=== PATIENT | female | born 1980 | race Hispanic/Latino ===

== ENCOUNTER 2022-07-07 17:20 | Emergency (ER) | payer SELFPAY ==
[2022-07-07 17:40] VITALS: BP 135/73; PULSE 67; RESP 18; TEMP 36.7; O2SAT 100
[2022-07-07 17:47] LABS: Basophils Percent Auto 0.4 % (0.2-1.2); Eosinophils Absolute Auto 0.1 K/mm3 (0-0.3); Eosinophils Percent Auto 0.7 % (0-4.4); Hemoglobin 13.2 g/dL (12.0-15.0); Immature Granulocyte Absolute 0.02 K/mm3 (0.00-0.031); Immature Granulocyte Percent A 0.2 % (0-0.5); Lymphocytes Absolute Auto 4.15 K/mm3 (0.9-3.2); Lymphocytes Percent Auto 39.1 % (18.3-44.2); Mean Corpuscular HGB Conc 32.2 g/dl (32-36); Mean Corpuscular Hemoglobin 28.4 pg (26-34); Mean Corpuscular Volume 88.2 fl (80-100); Mean Platelet Volume 10.7 fl (7.4-10.4); Monocytes Absolute Auto 0.6 K/mm3 (0.1-0.6); Monocytes Percent Auto 5.7 % (2.6-8.5); Neutrophils Absolute Auto 5.7 K/mm3 (1.3-6.7); Neutrophils Percent Auto 53.9 % (45.5-73.1); Platelet Count Result 190 k/mm3 (150-375); Red Blood Count 4.65 M/mm3 (4.2-5.4); Red Cell Distribution Width 12.9 % (11.5-14.5); White Blood Count 10.6 K/mm3 (4.5-10.0)
[2022-07-07 17:58] LABS: Alanine Aminotransferase 25 U/L (6-35); Albumin Level 4.5 g/dL (3.5-5.1); Alkaline Phosphatase 78 U/L (38-126); Anion Gap 12 mmol/L (8-16); Aspartate Amino Transferase 25 U/L (14-36); Bilirubin,Total 0.4 mg/dL (0.2-1.3); Blood Urea Nitrogen 12 mg/dL (7-17); Calcium 8.7 mg/dL (8.4-10.2); Carbon Dioxide 22 mmol/L (22-30); Chloride 102 mmol/L (98-107); Estimated Glomerular Filt Rate > 60; Glucose 135 mg/dL (65-110); Lipase 84 U/L (23-300); Potassium 3.7 mmol/L (3.4-5.0); Sodium 136 mmol/L (137-145)
[2022-07-07 18:10] LABS: Add Urine Microscopic? YES; Appearance Urine Cloudy (Clear); Bilirubin Urine Negative (Negative); Blood Urine 1+ (Negative); Color Urine Yellow (Yellow); Glucose Urine UA Negative (Negative); Ketones Urine Negative (Negative); Leukocyte Esterase Ur Trace LEU/UL (Negative); Mucus Urine Rare /lpf; Nitrate Urine Negative (Negative); Protein Urine Negative (Negative); RBC Urine 0-2 /hpf (0-2); Specific Grav Ur 1.019 (1.001-1.035); Squamous Epithelial Cell Urine Few /hpf (Few); Urobilinogen Urine Negative mg/dL (<2.0); WBC Urine 0-3 /hpf
--- NOTE | 2022-07-07 22:05 | PC.NURSE ---
No answer in waiting room
--- NOTE | 2022-07-07 22:12 | PC.NURSE ---
no answer at triage
== END 2022-07-07 22:12 | disposition left against medical advice (07) ==
LOC: ANHED 22:33
PROVIDERS: Emergency Provider Emergency Medicine
DX: R10.9 Unspecified abdominal pain (principal)
CPT/HCPCS: 36415; 80053; 81001; 81025; 83690; 85025; 99199

== ENCOUNTER 2022-08-13 14:49 | Emergency (ER) | payer SELFPAY ==
--- NOTE | ~2022-08-13 | CT_ITS ---
EXAMINATION: CT abdomen pelvis w con DATE: 08/13/2022 22:52 INDICATION: Left abdominal pain radiating to the back with nausea and vomiting TECHNIQUE: Computed tomography (CT) of the abdomen and pelvis was performed with 100 mL Omnipaque-350 intravenous contrast. Automated exposure control and iterative reconstruction technique were employe d. The dose-length product was 1076.32 mGy-cm. COMPARISON: None FINDINGS: Lung bases are clear. Heart size is normal. No pericardial or pleural effusion. Focal hepatic steatos is at the ligamentum teres. Minimal pericholecystic fluid at the gallbladder fossa subtle indistinctn ess to the margins of the gallbladder wall which raises some suspicion for acute cholecystitis althou gh the gallbladder is not frankly dilated and the wall thickness appears to remain normal. Spleen, pa ncreas, bilateral kidneys and right adrenal gland are normal. 9 mm left adrenal nodule statistically most likely to represent an adenoma. Normal appendix. No abnormal bowel wall thickening or obstructio n. 2.3 cm peripherally enhancing likely corpus luteum cyst at the right ovary. Bladder, anteverted ut erus and left adnexa are unremarkable. Trace amount of likely physiologic free fluid in the deep pelv is. No abscess or free intraperitoneal gas. No pathologically enlarged abdominal or pelvic lymphadeno isai. Mild thoracic and minimal lumbar spondylosis. Bone island at the left ischial tuberosity. IMPRESSION: 1. Minimal pericholecystic fluid with appearance raising some suspicion for acute cholecystitis. Bharath elate for Sorenson sign and if clinically indicated could consider further evaluation with either ultra sound or HIDA scan. Reviewed, dictated and finalized at location A. ENTIALING ASSISTANT IMPRESSION: 1. Minimal pericholecystic fluid with appearance raising some suspicion for acu te cholecystitis. Correlate for Sorenson sign and if clinically indicated could c onsider further evaluation with either ultrasound or HIDA scan.
[2022-08-13 15:44] VITALS: BP 122/67; PULSE 64; RESP 18; TEMP 37.4; O2SAT 100
--- NOTE | 2022-08-13 15:49 | ECG_ITS ---
Measurements Intervals [place] Rate: 68 P: 42 MS: 119 QRS: -9 QRSD: 85 T: 20 QT: 378 QTc: 403 Interpretive Statements SINUS RHYTHM WITH SHORT MS INTERVAL RSR' IN V1 OR V2, PROBABLY NORMAL VARIANT LOW QRS VOLTAGE IN PRECORDIAL LEADS BORDERLINE ECG NO PREVIOUS ECG AVAILABLE FOR COMPARISON Electronically Signed On 08-13-2022 16:07:26 PLASMA PROCESSING TECHNICIAN by Sina Heaton D.O.
[2022-08-13 15:58] LABS: Basophils Percent Auto 0.2 % (0.2-1.2); Eosinophils Absolute Auto 0.1 K/mm3 (0-0.3); Eosinophils Percent Auto 0.7 % (0-4.4); Hematocrit 42.6 % (37.0-47.0); Hemoglobin 13.8 g/dL (12.0-15.0); Immature Granulocyte Absolute 0.07 K/mm3 (0.00-0.031); Immature Granulocyte Percent A 0.4 % (0-0.5); Lymphocytes Absolute Auto 3.47 K/mm3 (0.9-3.2); Lymphocytes Percent Auto 21.5 % (18.3-44.2); Mean Corpuscular HGB Conc 32.4 g/dl (32-36); Mean Corpuscular Hemoglobin 28.8 pg (26-34); Mean Corpuscular Volume 88.9 fl (80-100); Mean Platelet Volume 10.9 fl (7.4-10.4); Monocytes Absolute Auto 0.7 K/mm3 (0.1-0.6); Monocytes Percent Auto 4.1 % (2.6-8.5); Neutrophils Absolute Auto 11.8 K/mm3 (1.3-6.7); Neutrophils Percent Auto 73.1 % (45.5-73.1); Platelet Count Result 208 k/mm3 (150-375); Red Blood Count 4.79 M/mm3 (4.2-5.4); Red Cell Distribution Width 13.2 % (11.5-14.5); White Blood Count 16.2 K/mm3 (4.5-10.0)
[2022-08-13 16:08] LABS: Alanine Aminotransferase 28 U/L (6-35); Albumin Level 4.4 g/dL (3.5-5.1); Alkaline Phosphatase 62 U/L (38-126); Anion Gap 11 mmol/L (8-16); Aspartate Amino Transferase 25 U/L (14-36); Bilirubin,Total 0.5 mg/dL (0.2-1.3); Blood Urea Nitrogen 11 mg/dL (7-17); Calcium 8.9 mg/dL (8.4-10.2); Carbon Dioxide 21 mmol/L (22-30); Chloride 105 mmol/L (98-107); Estimated Glomerular Filt Rate > 60; Glucose 112 mg/dL (65-110); Lipase 46 U/L (23-300); Potassium 4.2 mmol/L (3.4-5.0); Sodium 137 mmol/L (137-145)
[2022-08-13 16:29] LABS: Appearance Urine Clear (Clear); Bilirubin Urine Negative (Negative); Blood Urine Trace-intact (Negative); Color Urine Yellow (Yellow); Glucose Urine UA Negative (Negative); Ketones Urine Negative (Negative); Leukocyte Esterase Ur 2+ LEU/UL (Negative); Nitrate Urine Negative (Negative); Protein Urine Negative (Negative); Specific Grav Ur 1.015 (1.001-1.035); Urobilinogen Urine 0.2 mg/dL (<2.0); pH Urine 6.5 (5.0-9.0)
[2022-08-13 16:39] LABS: Mucus Urine Rare /lpf; RBC Urine 0-2 /hpf (0-2); Squamous Epithelial Cell Urine Few /hpf (Few); WBC Urine 0-3 /hpf
[2022-08-13 16:44] LABS: Add Urine Microscopic? YES
--- NOTE | 2022-08-13 21:37 | ED.GENADULT ---
HPI - General Adult General Chief complaint: Abdominal Pain Stated complaint: upper abdominal pain Time Seen by Provider: 08/13/22 21:26 Source: RN notes reviewed History of Present Illness HPI narrative: Patient presents emergency room from home for abdominal pain. Patient states that symptoms began yesterday. The pain is located in left upper quadrant and radiates around to the left back is described as sharp and stabbing in nature and has been associated with nausea vomiting x1. Denies any fevers or chills chest pain shortness of breath diarrhea or any other symptoms. States she had similar episode of pain approximately month and a half ago that resolved on its own she had no additional work-up states she not take anything for the symptoms Related Data Allergies Allergy/AdvReac Type Severity Reaction Status Date / Time No Known Allergies Allergy Verified 08/13/22 21:40 Review of Systems Review of Systems: Gen.: Denies fevers or chills ENT: Denies congestion Respiratory: Denies shortness of breath or cough CV: Denies chest pain or palpitations GI: HPI denies burning, urgency, frequency or hematuria Musculoskeletal: Denies back pain or muscle pain Neuro: Denies numbness, tingling, weakness or focal weakness Skin: Denies rash Except as documented, all other systems reviewed and negative [facility] Past Medical History Medical History (Updated 08/13/22 @ 23:43 by Josué Mendoza DO) Patient denies significant medical history Social History Social History (Updated 08/13/22 @ 21:38 by Josué Mendoza DO) Smoking status: Never smoker Exam Narrative: APPEARANCE: No acute distress, nontoxic, resting in bed HEENT: Normocephalic, atraumatic, OMM RESPIRATORY: No respiratory distress, clear to auscultation bilaterally with no rhonchi wheezing or rales CARDIOVASCULAR: RRR s murmur ABDOMINAL: Soft nondistended tender palpation left upper quadrant no tenderness in right upper quadrant, right lower quadrant left lower quadrant no rebound or guarding MUSCULOSKELETAl: Moves all extremities. No clubbing, cyanosis or edema. NEURO: Awake and alert. Following commands, speech normal, no focal deficits SKIN:: Warm, dry. Normal Color PSYCHIATRIC: Normal affect/mood Course Course Emergency Course: Patient states she is feeling much better at this time repeat abdominal exam is soft and nontender Discussed with Dr. Bai for surgery presentation work-up discussed CT results. At this time states he feels patient may be discharged home with Chely and Arnol with follow-up as an outpatient her pain is controlled Discussed with patient results of workup and diagnosis. Discussed need for follow-up with primary care, proper use of medication, and reasons to return to the emergency department. Patient understands and agrees to current treatment plan Vital Signs Vital signs: Vital Signs Temperature 99.3 F 08/13/22 15:44 Pulse Rate 64 08/13/22 15:44 Respiratory Rate 18 08/13/22 15:44 Blood Pressure 122/67 08/13/22 15:44 Pulse Oximetry 100 08/13/22 15:44 Oxygen Delivery Room Air 08/13/22 15:44 Temperature 97.5 F L 08/13/22 21:38 Pulse Rate 56 L 08/13/22 21:38 Respiratory Rate 18 08/13/22 21:38 Blood Pressure 122/70 08/13/22 21:38 Pulse Oximetry 100 08/13/22 21:38 Oxygen Delivery Room Air 08/13/22 15:44 Medical Decision Making Vital Signs Vital Signs: Vital Signs Temperature 99.3 F 08/13/22 15:44 Pulse Rate 64 08/13/22 15:44 Respiratory Rate 18 08/13/22 15:44 Blood Pressure 122/67 08/13/22 15:44 Pulse Oximetry 100 08/13/22 15:44 Oxygen Delivery Room Air 08/13/22 15:44 Temperature 97.5 F L 08/13/22 21:38 Pulse Rate 56 L 08/13/22 21:38 Respiratory Rate 18 08/13/22 21:38 Blood Pressure 122/70 08/13/22 21:38 Pulse Oximetry 100 08/13/22 21:38 Oxygen Delivery Room Air 08/13/22 15:44 Lab Data Result diagrams: 08/13/22 15:50
[2022-08-13 21:38] VITALS: BP 122/70; PULSE 56; RESP 18; TEMP 36.4; O2SAT 100
[2022-08-13] MEDS: SODIUM CHLORIDE 0.9% IV 1,000 ML 999 ML IV CONT (21:44)
[2022-08-13] MEDS: ONDANSETRON INJ 4 MG/2 ML VIAL IV PUSH (21:44)
[2022-08-13] MEDS: MORPHINE SULFATE (*CRX) 4 MG/ML INJ IV PUSH (21:45)
[2022-08-13] MEDS: metroNIDAZOLE 250 MG TABLET 500 MG PO (23:38)
[2022-08-13] MEDS: CIPROFLOXACIN 500 MG TAB PO (23:38)
[2022-08-14 00:02] VITALS: BP 117/60; PULSE 59; RESP 18; TEMP 36.4; O2SAT 100
== END 2022-08-14 00:04 | disposition home or self-care (01) ==
PROVIDERS: Emergency Medicine; Emergency Provider Emergency Medicine
DX: K81.0 Acute cholecystitis (principal); R94.31 Abnormal electrocardiogram [ECG] [EKG]
CPT/HCPCS: 36415; 74177; 80053; 81001; 81025; 83690; 85025; 93005; 96361; 96374; 96375; 99284; A9270; J2270; J2405; J7030; Q9967